=== PATIENT | male | born 1945 | race Two or more races ===

== ENCOUNTER 2017-01-08 16:42 | Emergency (ER) | payer MEDICARE, OTHER ==
[~2017-01-08] VITALS: Ht 167.6 cm; Wt 76.4 kg
[~2017-01-08 16:42] MED LIST: CLOP75TA27 PO; WARF3TAB PO
[2017-01-08 16:55] VITALS: Ht 167.6 cm; Wt 76.4 kg
[2017-01-08] MEDS ORDERED: SOD CHLORIDE 0.9% 1,000 ML IV STA (17:05)
[2017-01-08] MEDS ORDERED: AMIO100T4 PO (17:21)
[2017-01-08] MEDS ORDERED: TAMS-14 PO (17:22)
[2017-01-08] MEDS ORDERED: SACU1TAB PO (17:22)
[2017-01-08] MEDS ORDERED: METO2.5T12 PO (17:23)
[2017-01-08] MEDS ORDERED: FURO40TA4 PO (17:23)
[2017-01-08] MEDS ORDERED: SPIR25TA PO (17:24)
[2017-01-08] MEDS ORDERED: LANT3I SC (17:24)
[2017-01-08 17:53] LABS: ADD SCAN DIFF NO
[2017-01-08 17:54] LABS: ABNORMAL IP MESSAGE 1; BASOPHILS % 0.3 % (0.0-2.0); EOSINOPHILS # 0.8 10^3/ul (0.0-0.5); EOSINOPHILS % 7.6 % (0.0-7.0); HEMATOCRIT 31.1 % (42.0-52.0); HEMOGLOBIN 9.7 g/dl (14.0-18.0); LYMPHOCYTES # 0.5 10^3/ul (0.8-2.9); LYMPHOCYTES % 4.9 % (15.0-51.0); MEAN CORPUSCULAR HEMOGLOBIN 26.7 pg (29.0-33.0); MEAN CORPUSCULAR HGB CONC 31.2 g/dl (32.0-37.0); MEAN CORPUSCULAR VOLUME 85.7 fl (82.0-101.0); MEAN PLATELET VOLUME 10.5 fl (7.4-10.4); MONOCYTE # 0.7 10^3/ul (0.3-0.9); MONOCYTES % 6.6 % (0.0-11.0); NEUTROPHILS % 80.2 % (39.0-77.0); PLATELET COUNT 240 10^3/UL (140-415); RED BLOOD COUNT 3.63 10^6/ul (4.70-6.10); RED CELL DISTRIBUTION WIDTH 16.3 % (11.5-14.5)
--- NOTE | 2017-01-08 18:01 | ERD ---
ER Documentation Chief Complaint Date/Time DATE: 01/08/17 TIME: 17:56 Chief Complaint DIZZINESS, RECENTLY DISCHARGED FROM [facility] 71-year-old man brought in by EMS from home for syncopal episode when he got up from a laying position. He states he was discharged today from the hospital after a 5 day inpatient stay for congestive heart failure. He was given furosemide intravenously [id number] and when symptoms improved he was discharged, states when he went home he laid down with his legs up because his blood pressure was just under 100 mmHg. When he got up he felt dizzy and had a syncopal episode which was witnessed. Mental status was normal when he woke up , he had no complaints of chest pain or shortness of breath and has none now, denies abdominal pain, no calf or leg swelling, no vomiting or diarrhea. Patient was transported here by EMS without further complications. ROS All systems reviewed and are negative except as per history of present illness. Medications Home Meds Reported Medications Insulin Glargine* (Lantus*) 100 Unit/Ml Soln, 25 UNIT SC DAILY, #1 VIAL 01/08/17 Spironolactone* (Aldactone*) 25 Mg Tablet, 25 MG PO DAILY, #30 TAB 01/08/17 Metolazone* (Metolazone*) 2.5 Mg Tablet, 2.5 MG PO DAILY, TAB 01/08/17 Furosemide* (Furosemide*) 40 Mg Tablet, 40 MG PO BID, TAB 01/08/17 Sacubitril/Valsartan (Entresto 24 mg-26 mg Tablet) 1 Each Tablet, 1 EACH PO BID , TAB 01/08/17 Tamsulosin Hcl* (Flomax*) 0.4 Mg Cap.er.24h, 0.4 MG PO DAILY, CAP 01/08/17 Amiodarone Hcl* (Amiodarone Hcl*) 100 Mg Tablet, 100 MG PO BID, #30 TAB 01/08/17 Warfarin Sodium* (Coumadin*) 3 Mg Tablet, 3 MG PO DAILY, TAB 11/19/14 Clopidogrel Bisulfate (Clopidogrel) 75 Mg Tablet, 75 MG PO DAILY, TAB 11/19/14 Allergies Allergies: Coded Allergies: No Known Drug Allergies (Verified Allergy, Unknown, 01/08/17) PMhx/Soc History of myocardial infarction, AICD, coronary artery disease, diabetes mellitus, coronary artery bypass graft, congestive heart failure, BPH Anesthesia Reaction: No Hx Neurological Disorder: No Hx Respiratory Disorders: No Hx Cardiac Disorders: Yes (Pacemaker, CHF) Hx Psychiatric Problems: No Hx Miscellaneous Medical Probl: No Hx Alcohol Use: No Hx Substance Use: No Hx Tobacco Use: No Smoking Status: Former smoker FmHx Family History: No diabetes Physical Exam Vitals Vital Signs Date Time Temp Pulse Resp B/P Pulse Ox O2 Delivery O2 Flow Rate FiO2 01/08/17 18:53 94/61 01/08/17 18:53 95/66 01/08/17 18:52 98/63 01/08/17 18:19 97.9 60 16 91/64 97 Room Air 01/08/17 16:56 97.9 68 16 97/60 84 Room Air 01/08/17 16:55 97.9 61 20 97/60 88 Physical Exam GENERAL: Well-developed, well-nourished, appears dehydrated, afebrile HEENT: Dry Mucous membranes, pink conjunctiva, no cervical spine tenderness or step-off deformities, no goiter, no jaundice or icterus, extraocular movements intact without pain. No submandibular induration, and no pharyngeal erythema NEURO: Alert and oriented 3, cranial nerves II through XII intact bilaterally, pupils equal round reactive to light, no focal deficits or facial asymmetry, sensation intact distally Strength 5/5 in upper and lower extremities bilaterally CARDIAC: Regular rate and rhythm, no murmurs rubs or gallops LUNGS: Clear bilaterally no wheezing crackles or stridor ABDOMEN: Soft nontender, no guarding, no rigidity, no rebound, no psoas sign no obturator sign. Normoactive bowel sounds SKIN: Warm and dry to touch, no abrasions, contusions, or hematomas, no lacerations, no ecchymosis, no target lesions, and without ulcers EXTREMITIES: No clubbing cyanosis or edema, calves are bilaterally symmetrical, no Homans sign, no popliteal cord sign. Distal pulses equal and bilateral PSYCH: Normal affect without agitation or irritability Result Diagram: 01/08/17 1700 01/08/17 170 Results 24 hrs Laboratory Tests Test 01/08/17 17:00 White Blood Count 10.010^3/ul Red Blood Count 3.6310^6/ul Hemoglobin 9.7g/dl Hematocrit 31.1% Mean Corpuscular Volume 85.7fl Mean Corpuscular Hemoglobin 26.7pg Mean Corpuscular Hemoglobin Concent 31.2g/dl Red Cell Distribution Width 16.3% Platelet Count 86267^3/UL Mean Platelet Volume 10.5fl Neutrophils % 80.2% Lymphocytes % 4.9% Monocytes % 6.6% Eosinophils % 7.6% Basophils % 0.3% Nucleated Red Blood Cells % 0.0/100WBC Neutrophils # 8.010^3/ul Lymphocytes # 0.510^3/ul Monocytes # 0.710^3/ul Eosinophils # 0.810^3/ul Basophils # 0.010^3/ul Nucleated Red Blood Cells # 0.010^3/ul Sodium Level 132mmol/L Potassium Level 4.4mmol/L Chloride Level 97mmol/L Carbon Dioxide Level 26mmol/L Anion Gap 13 Blood Urea Nitrogen 72mg/dl Creatinine 2.75mg/dl Glucose Level 167mg/dl Calcium Level 8.6mg/dl Total Bilirubin 0.3mg/dl Direct Bilirubin 0.00mg/dl Indirect Bilirubin 0.3mg/dl Aspartate Amino Transf (AST/SGOT) 20IU/L Alanine Aminotransferase (ALT/SGPT) 28IU/L Alkaline Phosphatase 100IU/L Troponin I 0.022ng/ml Total Protein 8.2g/dl Albumin 3.7g/dl Globulin 4.50g/dl Albumin/Globulin Ratio 0.82 Lipase 168U/L Current Medications Medications (Trade) Dose Ordered Sig/Nayana Route PRN Reason Start Time Stop Time Status Last Admin Dose Admin Sodium Chloride (NS) 1,000 ml @ 1,000 mls/hr Q1H STAT IV 01/08/17 17:05 01/08/17 18:04 DC 01/08/17 17:20 Procedures/MDM IV line was established patient was placed on cardiac cath rn rhythm strip revealed a wide-complex paced rhythm at about 60 bpm. Patient was afebrile. EKG performed, read by me revealed a paced rhythm at 61 bpm, left axis deviation and a right bundle branch block with a QRS duration of 132 ms, no concerning ST elevations or depressions noted. I suspect dehydration secondary to overdiuresis. He has no complaints of chest pain or shortness of breath and does have any signs or symptoms of decompensated heart failure at this time. I administered 1 L normal saline intravenously for initial hypotension and his blood pressure did improve. Orthostatic vital signs were performed after IV fluid therapy and there were no significant changes going from a laying to standing position. Patient did not feel dizzy while standing. Blood pressure improved. CBC is unremarkable, electrolytes revealed dehydration with elevated BUN/ creatinine levels at 72/2.8 consistent with recent dehydration and furosemide use, liver function tests are normal, troponin was negative. Differential diagnoses considered, included but not limited to acute coronary syndrome, pulmonary embolism, aortic dissection, abdominal aortic aneurysm, sepsis, stroke, meningitis, encephalitis, pneumonia, appendicitis, cholecystitis , bowel obstruction, pyelonephritis, nephrolithiasis, cystitis, as well as metabolic, hematologic, and electrolyte abnormalities. As well as abscess, cellulitis, fractures, and dislocations. Patient feels much better at this time, and vital signs are normal, symptoms have improved. I did give strict instructions to return to the ED if symptoms continue or worsen, patient will otherwise follow-up with primary care physician. Patient understood instructions and agreed to plan. Departure Diagnosis: Primary Impression: Dehydration Additional Impression: Syncope Syncope type: unspecified Qualified Code: R55 - Syncope, unspecified syncope type Condition: BELEN Blas MD Jan 08, 2017 18:01
[2017-01-08 18:10] LABS: ALBUMIN 3.7 g/dl (3.3-4.9); ALBUMIN/GLOBULIN RATIO 0.82; BILIRUBIN,INDIRECT 0.3 mg/dl (0-1.1); BILIRUBIN,TOTAL 0.3 mg/dl (0.2-1.3); CALCIUM 8.6 mg/dl (8.4-10.2); CREATININE 2.75 mg/dl (0.61-1.24); POTASSIUM 4.4 mmol/L (3.5-5.1); TOTAL PROTEIN 8.2 g/dl (6.1-8.1)
[2017-01-08 18:19] VITALS: PULSE 60; RESP 16; TEMP 97.9
[2017-01-08 18:21] LABS: TROPONIN-I 0.022 ng/ml (0.00-0.12)
[2017-01-08 18:53] VITALS: BP 94/61
== END 2017-01-08 18:57 | disposition home or self-care (01) ==
LOC: E/R 16:42
DX: E86.0 Dehydration (principal); R55 Syncope and collapse; I25.10 Atherosclerotic heart disease of native coronary artery without angina pectoris; E11.9 Type 2 diabetes mellitus without complications; I50.9 Heart failure, unspecified; Z79.4 Long term (current) use of insulin; Z95.1 Presence of aortocoronary bypass graft; Z95.0 Presence of cardiac pacemaker; Z87.891 Personal history of nicotine dependence; Z79.01 Long term (current) use of anticoagulants
CPT/HCPCS: 36415; 80053; 83690; 84484; 85025; 93005; 99284; J7030